=== PATIENT | female | born 1940 | race Two or more races ===

== ENCOUNTER 2017-12-28 20:07 | Emergency (ER) | payer MEDICARE, OTHER ==
[~2017-12-28] VITALS: Ht 162.6 cm; Wt 61.7 kg
[2017-12-28] MEDS ORDERED: EYE DROPS (20:20)
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
--- NOTE | 2017-12-28 20:31 | NUR ---
DR NATALIE ROYAL MD AT BEDSIDE FOR MSE.
[2017-12-28] MEDS ORDERED: diphenhydrAMINE 50 MG CAPSULE PO ONE (20:45)
[2017-12-28] MEDS ORDERED: diphenhydrAMINE 50 MG CAPSULE ONE (20:51)
--- NOTE | 2017-12-28 20:53 | NUR ---
Patient discharged to home in stable conditon. Written and verbal after care instructions given. Patient verbalizes understanding of instructions. Pt ambulated from ER w/ steady gait, accompanied by . Pt took all personal belongings. No distress noted.
[2017-12-28 20:54] VITALS: BP 131/74
== END 2017-12-28 20:55 | disposition home or self-care (01) ==
LOC: ER 20:07
DX: R21 Rash and other nonspecific skin eruption (principal); Z88.0 Allergy status to penicillin; Z79.899 Other long term (current) drug therapy
CPT/HCPCS: A4663; Q0163

== ENCOUNTER 2018-11-10 06:59 | Day surgery (SDC) | payer MEDICARE, OTHER ==
[~2018-11-10 06:59] MED LIST: EYE DROPS
[2018-11-10] MEDS ORDERED: IV NORMAL SALINE 1000 ML BAG IV ONE (07:00)
[2018-11-10] MEDS ORDERED: LIDOCAINE-MPF 2% 5 ML VIAL MC ONE (07:00)
[2018-11-10] MEDS ORDERED: PROPOFOL 200 MG/20 ML BOTTLE IV ONE (07:00)
[2018-11-10] MEDS ORDERED: IRR STERIL WATER FOR IRR 1000 ML BOTTLE IR ONE (07:00)
[2018-11-10] MEDS ORDERED: ONDANSETRON 4 MG/2 ML VIAL IV ONE (07:00)
[2018-11-10 07:33] LABS: *BILIRUBIN,URIN NEGATIVE (NEGATIVE); *BLOOD, URINE 2+ (NEGATIVE); *CLARITY,URINE CLOUDY (CLEAR); *COLOR,URINE YELLOW (YELLOW); *KETONES,URINE NEGATIVE (NEGATIVE); *UROBILINOGEN,URINE 0.2 E.U./dl (NORMAL); LEUKOCYTE ESTERASE ,URINE 2+ (NEGATIVE); NITRITE, URINE POSITIVE (NEGATIVE); PH,URINE 5.5 (5.0-8.0)
[2018-11-10] MEDS ORDERED: FENTANYL CITRATE 100 MCG/2 ML AMPUL ONE (07:35)
[2018-11-10 07:37] LABS: BASOPHILS % (AUTO) 0.5 % (0.0-2.0); EOSINOPHILS # (AUTO) 0.1 K/uL (0.0-0.7); EOSINOPHILS % (AUTO) 1.8 % (0.0-7.0); HEMOGLOBIN 14.2 g/dL (10.9-14.3); LYMPHOCYTES # (AUTO) 1.5 K/uL (20.0-40.0); LYMPHOCYTES % (AUTO) 32.6 % (20.5-51.5); MEAN CORPUSCULAR HEMOGLOBIN 31.3 uug (24.7-32.8); MEAN CORPUSCULAR HGB CONC 33 g/dL (32.3-35.6); MEAN CORPUSCULAR VOLUME 94.8 fL (75.5-95.3); MONOCYTES # (AUTO) 0.4 K/uL (2.0-10.0); MONOCYTES % (AUTO) 9.3 % (0.0-11.0); NEUTROPHILS # (AUTO) 2.6 K/uL (1.8-8.9); NEUTROPHILS % (AUTO) 55.8 % (38.5-71.5); PLATELET COUNT (AUTO) 115 K/uL (179-408); RED BLOOD CELL COUNT(AUTO) 4.54 MIL/uL (3.63-4.92); WHITE BLOOD COUNT (AUTO) 4.7 K/uL (3.8-11.8)
[2018-11-10] MEDS ORDERED: KETOROLAC 0.5% OPHT DROP 3 ML BOTTLE ONE ×2 (07:37→07:39)
[2018-11-10] MEDS ORDERED: PHENYLEPHRINE 2.5% OPHT DROP 2 ML BOTTLE ONE (07:38)
[2018-11-10] MEDS ORDERED: CIPROFLOXACIN 0.3% OPHT DROP 2.5 ML BOTTLE ONE (07:38)
[2018-11-10] MEDS ORDERED: CYCLOPENTOLATE 1% OPHT DROP 2 ML BOTTLE ONE (07:38)
[2018-11-10] MEDS ORDERED: TETRACAINE HCL 0.5% OPHT DROP 2 ML BOTTLE ONE ×2 (07:38→07:51)
[2018-11-10 07:45] LABS: CARBON DIOXIDE 28 mmol/L (21-32); CHLORIDE 108 mmol/L (98-107); CREATININE 0.9 mg/dL (0.6-1.3); GLUCOSE 127 mg/dL (74-106); POTASSIUM 4.2 mmol/L (3.5-5.1); UREA NITROGEN, BLOOD 40 mg/dL (7-18)
[2018-11-10 07:48] LABS: BACTERIA,URINE MANY /HPF (NONE SEEN); WBC,URINE TNTC /HPF (0-3)
[2018-11-10 07:49] LABS: SQUAMOUS EPITHELIAL CELL,UR MODERATE /HPF (NONE SEEN)
[2018-11-10] MEDS ORDERED: NEO/POLYMYX B/DEXAME OPHT OINT 3.5 GM TUBE ONE (07:51)
[2018-11-10] MEDS ORDERED: EPINEPHRINE 1 MG/1 ML AMP ONE (07:51)
[2018-11-10] MEDS ORDERED: PILOCARPINE 1% OPHT DROP 15 ML BOTTLE ONE (07:51)
[2018-11-10] MEDS ORDERED: LIDOCAINE HCL-MPF 1% 5 ML VIAL ONE (07:51)
[2018-11-10] MEDS ORDERED: BALANCED SALT IRRIG SOLN COMB2 15 ML IRRIG.SOLN ONE (07:51)
[2018-11-10] MEDS ORDERED: BUPIVACAINE PF 0.5% 30 ML VIAL ONE (07:52)
[2018-11-10 07:55] LABS: UGLUCOSE 2+ (NEGATIVE)
[2018-11-10] MEDS ORDERED: BALANCED SALT IRRIG SOLN COMB1 500 ML, EPINEPHRINE-PF 1:1000 1 MG IO ONE ×2 (08:00)
== END 2018-11-10 10:46 | disposition home or self-care (01) ==
LOC: DS 06:59
PROVIDERS: ATTEND Dermatology MOHS-Micrographic Surgery
DX: E11.36 Type 2 diabetes mellitus with diabetic cataract (principal); I25.10 Atherosclerotic heart disease of native coronary artery without angina pectoris; F32.9 Major depressive disorder, single episode, unspecified; E03.9 Hypothyroidism, unspecified; M81.0 Age-related osteoporosis without current pathological fracture; E78.00 Pure hypercholesterolemia, unspecified; Z98.890 Other specified postprocedural states; Z79.899 Other long term (current) drug therapy; Z79.82 Long term (current) use of aspirin; Z79.84 Long term (current) use of oral hypoglycemic drugs; Z82.49 Family history of ischemic heart disease and other diseases of the circulatory system; Z79.4 Long term (current) use of insulin; Z79.01 Long term (current) use of anticoagulants
CPT/HCPCS: 36415; 66984; 71045; 80048; 81000; 81001; 85025; 85730; 87077; 87086; 87186; 93005; J0171 ×2; J2405; J3010; J3490 ×3; J7120; V2632; A4217; A4663; J3590; J7030

== ENCOUNTER 2019-04-13 06:13 | Day surgery (SDC) | payer MEDICARE, OTHER ==
[2019-04-13] MEDS ORDERED: ONDANSETRON 4 MG/2 ML VIAL IV ONE (06:14)
[2019-04-13] MEDS ORDERED: KETOROLAC 0.5% OPHT DROP 3 ML BOTTLE ONE (06:21)
[2019-04-13] MEDS ORDERED: TETRACAINE HCL 0.5% OPHT DROP 2 ML BOTTLE ONE ×2 (06:21→07:43)
[2019-04-13] MEDS ORDERED: PHENYLEPHRINE 2.5% OPHT DROP 2 ML BOTTLE ONE (06:22)
[2019-04-13] MEDS ORDERED: CYCLOPENTOLATE 1% OPHT DROP 2 ML BOTTLE ONE (06:22)
[2019-04-13] MEDS ORDERED: CIPROFLOXACIN 0.3% OPHT DROP 2.5 ML BOTTLE ONE (06:22)
[2019-04-13 06:53] LABS: BASOPHILS % (AUTO) 0.8 % (0.0-2.0); EOSINOPHILS # (AUTO) 0.1 K/uL (0.0-0.7); EOSINOPHILS % (AUTO) 1.4 % (0.0-7.0); HEMATOCRIT 40.6 % (31.2-41.9); HEMOGLOBIN 13.7 g/dL (10.9-14.3); LYMPHOCYTES # (AUTO) 1.3 K/uL (20.0-40.0); MEAN CORPUSCULAR HGB CONC 34 g/dL (32.3-35.6); MEAN CORPUSCULAR VOLUME 94.3 fL (75.5-95.3); MONOCYTES # (AUTO) 0.5 K/uL (2.0-10.0); NEUTROPHILS # (AUTO) 2.3 K/uL (1.8-8.9); NEUTROPHILS % (AUTO) 55.8 % (38.5-71.5); PLATELET COUNT (AUTO) 115 K/uL (179-408); WHITE BLOOD COUNT (AUTO) 4.2 K/uL (3.8-11.8)
[2019-04-13] MEDS ORDERED: BALANCED SALT IRRIG SOLN COMB1 500 ML, EPINEPHRINE-PF 1:1000 1 MG IO ONE ×2 (07:00)
[2019-04-13 07:25] LABS: CREATININE 0.8 mg/dL (0.6-1.3); POTASSIUM 3.9 mmol/L (3.5-5.1)
[2019-04-13] MEDS ORDERED: TIMOLOL MALEATE 0.5% OPHT DROP 5 ML BOTTLE ONE (07:42)
[2019-04-13] MEDS ORDERED: LIDOCAINE-MPF 2% 5 ML VIAL ONE (07:42)
[2019-04-13] MEDS ORDERED: MOXIFLOXACIN HCL 3 ML OPHT DROPS ONE (07:42)
[2019-04-13] MEDS ORDERED: ACETYLCHOLINE CHLORIDE 1% OPHT 1 EA KIT ONE (07:43)
[2019-04-13] MEDS ORDERED: BALANCED SALT IRRIG SOLN COMB2 15 ML IRRIG.SOLN ONE (07:43)
[2019-04-13] MEDS ORDERED: BUPIVACAINE PF 0.5% 30 ML VIAL ONE (07:43)
[2019-04-13] MEDS ORDERED: HYALURONIDASE,OVINE 200 UNITS/ML VIAL ONE (07:44)
[2019-04-13] MEDS ORDERED: HYALURONATE SODIUM 12.8 MG/0.8 ML DISP.SYRIN ONE (07:44)
[2019-04-13] MEDS ORDERED: MIDAZOLAM HCL 2 MG/2 ML VIAL ONE (08:03)
[2019-04-13] MEDS ORDERED: FENTANYL CITRATE 100 MCG/2 ML AMPUL ONE (08:04)
[2019-04-13] MEDS ORDERED: NEO/POLYMYX B/DEXAM OPHT DROP 5 ML BOTTLE ONE (08:14)
[2019-04-13] MEDS ORDERED: LIDOCAINE HCL-MPF 1% 5 ML VIAL ONE (10:07)
[2019-04-13] MEDS ORDERED: EPINEPHRINE 1 MG/1 ML AMP ONE (10:07)
== END 2019-04-13 10:30 | disposition home or self-care (01) ==
LOC: DS 06:13
PROVIDERS: ATTEND Dermatology MOHS-Micrographic Surgery
DX: H25.89 Other age-related cataract (principal); I25.10 Atherosclerotic heart disease of native coronary artery without angina pectoris; E03.9 Hypothyroidism, unspecified; I10 Essential (primary) hypertension; M19.90 Unspecified osteoarthritis, unspecified site; M81.0 Age-related osteoporosis without current pathological fracture; F41.9 Anxiety disorder, unspecified; F15.90 Other stimulant use, unspecified, uncomplicated; Z88.0 Allergy status to penicillin; Z79.899 Other long term (current) drug therapy; Z98.890 Other specified postprocedural states
CPT/HCPCS: 36415; 66984; 80048; 85025; 85730; J0171 ×2; J2250; J2405; J3010; J3490 ×2; V2632; A4663; J3471; J3590; J7030; J7321